=== PATIENT | male | born 1990 | race Caucasian/White ===

== ENCOUNTER 2018-06-11 03:05 | Emergency (ER) ==
[2018-06-11 03:29] VITALS: BP 127/81; TEMP 97.7; BMI 24.5
--- NOTE | 2018-06-11 04:04 | ED.PDOC ---
General ED Provider: Dr. KEN JENKINS Chief Complaint: Non-specific Complaint Stated Complaint: anxiety,however the comoplait is nonspecific,,Patient denies any suicidal or homicidaj thoughts,Woiuld like to know if Clojnopien that he receives from his doctor is Ok,I told him that he shoulkd tommy it compliuantly as he seems to skip doses,He appeares to be glad that he was able to converse about his anxiety,He does not demonstrate any hostile o4 agiytated state, Expresses understanding of his need to continue with meds as per his doctor, Time Seen by Physician: 03:25 Mode of Arrival: Walk-In Information Source: Patient Exam Limitations: No limitations Nursing and Triage Documentation Reviewed and Agree: Yes Does patient meet sepsis criteria?: No System Inflammatory Response Syndrome: Not Applicable Sepsis Protocol: For patient's 13 years and over: Temp is 96.8 and below OR 101 and greater Pulse >90 BPM Resp >20/minute Acutely Altered Mental Status Are patient's symptoms suggestive of a new infection, such as: -Pneumonia -Skin, Soft Tissue -Endocarditis -UTI -Bone, Joint Infection -Implantable Device -Acute Abdominal Infection -Wound Infection -Meningitis -Blood Stream Catheter Infection -Unknown Psychological Complaint Exam - Psychiatric Complaint/Exam Onset/Duration: epression appeares to be mixed with anxiety,Patient appeares to be anxious Symptoms Are: Resolved Timing: Intermittent Episodes Lasting: Hours Initial Severity: Mild Current Severity: Mild Character: Present: Anxious Aggravating: Reports: None Associated Signs And Symptoms: Reports: Sleep disturbance Completed Suicide Risk Factors: Male, Patient Accompanied By: Other Patient In Custody Of Police: No Social Withdrawal Present: No Social Isolation Present: No Prior Suicide Attempt: No Injury From Prior Suicide Attempt: No Patient Uncooperative For Exam: No Mood: Present: Manic Appearance: Present: Clean Thought Process: Present: Logical Insight: Present: Good Memory: Intact Judgement: Normal Differential Diagnoses: Anxiety, Bipolar Disorder, Other Review of Systems - Review Of Systems Constitutional: Reports: No symptoms Eyes: Reports: No symptoms Ears, Nose, Mouth, Throat: Reports: No symptoms Respiratory: Reports: No symptoms Cardiac: Reports: No symptoms GI: Reports: No symptoms. Denies: Diarrhea : Reports: No symptoms Musculoskeletal: Reports: No symptoms Skin: Reports: No symptoms Neurological: Reports: No symptoms Endocrine: Reports: No symptoms Hematologic/Lymphatic: Reports: No symptoms All Other Systems: Reviewed and Negative Past Medical History - Past Medical History Previously Healthy: No Endocrine: Reports: None Cardiovascular: Reports: None Respiratory: Reports: None Hematological: Reports: None Gastrointestinal: Reports: None Genitourinary: Reports: None Neuro/Psych: Reports: None, CVA, Anxiety, Bipolar Disorder Musculoskeletal: Reports: None Cancer: Reports: None - Surgical History General Surgical History: Reports: None. Denies: Gastric Sleeve - Family History Family History: Reports: None - Social History Smoking Status: Current every day smoker, Light tobacco smoker Hx Substance Use: No Alcohol Screening: None - Immunizations Tetanus Shot up to Date: No (2006) Physical Exam - Physical Exam Appearance: Well-appearing Ill-appearing: None Pain Distress: None Eyes: DAIJA ENT: Ears normal, Nose normal Neck: Supple Respiratory: Airway patent, Breath sounds diminished Cardiovascular: RRR, Pulses normal, No murmur GI/: Soft, Nontender, No masses Musculoskeletal: Normal strength, ROM intact, No edema Skin: Warm, Dry Neurological: Sensation intact, Motor intact, Reflexes intact, Alert, Oriented Psychiatric: Affect appropriate Critical Care Note - Critical Care Note Total Time (mins): 0 Course - Course Vital Signs: Temp Pulse Resp BP Pulse Ox 06/11/18 03:16 97.7 F 74 20 127/81 98 Departure - Departure Time of Disposition: 04:21 Disposition: HOME SELF-CARE Discharge Problem: Anxiety Instructions: Anxiety (ED) Condition: Good Pt referred to PMD for follow-up: Yes IPMP verified?: No Allergies/Adverse Reactions: Allergies No Known Allergies Allergy (Unverified 06/11/18 03:28) Home Medications: Ambulatory Orders Clonazepam 2 mg PO TID 06/11/18 Dextroamphetamine/Amphetamine [Adderall 15 mg Tablet] 15 mg PO QPM 06/11/18 Dextroamphetamine/Amphetamine [Adderall 20 mg Tablet] 20 mg PO DAILY 06/11/18 Paroxetine HCl [Paxil] 40 mg PO BEDTIME 06/11/18 Disposition Discussed With: Patient
== END 2018-06-11 04:20 | disposition home or self-care (01) ==
LOC: ED 03:05
DX: F41.9 Anxiety disorder, unspecified (principal); F17.210 Nicotine dependence, cigarettes, uncomplicated
CPT/HCPCS: 99282